=== PATIENT | male | born 1945 | race Caucasian/White ===

== ENCOUNTER 2017-09-15 03:25 | Inpatient (IN) | payer OTHER, MEDICARE ==
[~2017-09-15] VITALS: Ht 170.2 cm; Wt 75.9 kg
[2017-09-15 13:30] VITALS: BP 137/81
[2017-09-15] MEDS ORDERED: ACET/BUTAL/CAFF (FIORICET) TAB PO PRN (14:30)
[2017-09-15 14:35] LABS: MAGNESIUM 1.8 MG/DL (1.8-2.4); PROTHROMBIN TIME PATIENT 13.4 SEC (12.2-14.7)
--- NOTE | 2017-09-15 15:14 | Cardiology History & Physical ---
HPI-Cardiology Cardiology H&P Date of Admission 09-15-[address] Hutchins Attending Physician Eula Payan MD [facility]cds Consulting Physician ÁNGEL Mr. Patiño is a 71 year old male transferred to [facility], ICU 11, from [facility] d/t NSTEMI. He reports he had a non-syncopal fall at home on the morning of . He states he lives at home alone. He reports he was in his kitchen at home he began to feel his legs become weak. He reports feeling dizzy. He states he leaned up against his fridge and tried to lower himself to the ground , but he reports he passed out. He is unsure of how long he was out. He reports he did not go immediately to the ED, but by the end of the day he decided to go to the ED. He subsequently was found to have a right hip fracture. He underwent surgery at [facility] on09-13-17. He states after surgery, he is unsure of the time frame, he did have an episode of chest pressure which was midsternal and radiated across his chest. He reports he felt SOB, nauseated, diaphoretic. He states this lasted for a few minutes and gradually resolved. He states he no further episodes until this morning when he was up walking with PT. He states he again had chest pressure. He states it was not as strong as the previous episode. He reports it lasted for a few minutes and then gradually resolved. He reports he did feel weak at the time. He reports no further episodes. He is currently pain free. Review of Systems-Cardiology Review of Systems Constitutional: No chills, No fever Eyes: No vision change Ears/Nose/Throat: No epistaxis, No recent hearing loss Respiratory: no symptoms reported Cardiovascular: no symptoms reported Gastrointestinal: nausea Genitourinary: No dysuria, No hematuria Musculoskeletal: other (right hip pain (post surgical)) Skin: No rash, No ulcerations Psychiatric/Neurological: syncope, No focal weakness Hematologic: No bleeding abnormalities NNI-Qjuyfm-Kleurj Hx Patient Social History Smoking Status: Never a Smoker Recent Foreign Travel: No Recent Infectious Disease Expo: Yes Past Medical History PMH As described under Assessment. Family Medical History Family Medical History: He reports his father had CAD, PPM and was on warfarin. He reports his mother had CAD. Allergies and Home Medications Allergies Coded Allergies: atenolol (Verified Allergy, Unknown, Trouble breathing, 09/15/17) Home Medications Aspirin 81 Mg Tablet.dr, 81 MG PO HS, (Reported) Butalb/Acetaminophen/Caffeine 1 Each Capsule, 2 CAP PO Q4H PRN for MIGRAINE, ( Reported) Ergocalciferol (Vitamin D2) 50,000 Unit Capsule, 50,000 UNIT PO FRI, (Reported) Furosemide 20 Mg Tablet, 20 MG PO DAILY, (Reported) Insulin Aspart 300 Units/3 Ml Solution, SC UD, (Reported) USES 11 UNITS W/ BREAKFAST & LUNCH & 15 UNITS W/ SUPPER, USES AN ADDITIONAL 2 UNITS FOR EVERY 50 POINTS OVER 150 BS READING Insulin Glargine,Hum.rec.anlog 100 Unit/1 Ml Insuln.pen, 46 UNIT SQ HS, ( Reported) Loratadine 10 Mg Tablet, 10 MG PO HS, (Reported) [place] 3 Polyunsat Fatty Acids 1,000 Mg Cap, 1,000 MG PO HS, (Reported) Omeprazole 20 Mg Capsule.dr, 20 MG PO HS, (Reported) Pravastatin Sodium 80 Mg Tablet, 80 MG PO HS, (Reported) Tamsulosin HCl 0.4 Mg Cap, 0.4 MG PO HS, (Reported) Tramadol HCl 50 Mg Tablet, 100 MG PO BID, (Reported) TAKES 2 (50MG) TABLETS [Gabapentin] , 2 TAB PO BID, (Reported) [Valsartan] , (Reported) Physical Exam-Cardiology Physical Exam Vital Signs/I&O Vital Sign - Last 12Hours 09/15/17 09/15/17 09/16/17 09/16/17 20:00 20:03 00:00 00:00 Temp 98.4 99.8 Pulse 96 92 Resp 18 19 B/P (MAP) 106/64 (78) 137/82 (100) Pulse Ox 98 98 O2 Delivery Room Air Room Air Room Air Room Air 09/16/17 09/16/17 09/16/17 01:00 04:00 04:00 Temp 99.3 Pulse 86 84 B/P (MAP) 157/85 (109) Pulse Ox 94 O2 Delivery Room Air Room Air Intake and Output 09/16/17 00:00 Intake Total 600 ml Output Total 700 ml Balance -100 ml Capillary Refill : Constitutional: AAO x 3 HEENT: PERRL Neck: No carotid bruit, carotid pulses are 2 + bilaterally Respiratory: No accessory muscle use, No respiratory distress, lungs clear to auscultation Cardiovascular: regular rate-rhythm, No JVD, S1 and S2, systolic murmur Gastrointestinal: audible bowel sounds Rectal: deferred Extremities: no lower extremity edema bilateral, wound (Right hip post surgical dressing in place D&I) Neurologic/Psychiatric: grossly intact Skin: No rash, No ulcerations Data Review Labs Laboratory Tests 09/15/17 14:18: Prothrombin Time 13.4, INR Comment 1.0, Activated Partial Thromboplast Time 37H , Magnesium Level 1.8, Troponin I 1.38*H 09/15/17 15:22: Glucometer 279H 09/16/17 04:35: Prothrombin Time 13.7, INR Comment 1.0, Activated Partial Thromboplast Time 35, Magnesium Level 1.9, White Blood Count 9.2, Red Blood Count 3.92L, Hemoglobin 12.0L, Hematocrit 31L, Mean Corpuscular Volume 79L, Mean Corpuscular Hemoglobin 31, Mean Corpuscular Hemoglobin Concent 39H, Red Cell Distribution Width 12.4, Platelet Count 204, Mean Platelet Volume 9.3, Sodium Level 140, Potassium Level 3.9, Chloride Level 108H, Carbon Dioxide Level 19L, Anion Gap 13, Blood Urea Nitrogen 38H, Creatinine 2.05H, Estimat Glomerular Filtration Rate 32, BUN/ Creatinine Ratio 19, Glucose Level 155H, Calcium Level 8.7, Total Bilirubin 0.4 , Aspartate Amino Transf (AST/SGOT) 14, Alanine Aminotransferase (ALT/SGPT) 13, Alkaline Phosphatase 67, Total Protein 6.0L, Albumin 3.2, Triglycerides Level 177H, Cholesterol Level 164, LDL Cholesterol Direct 100, VLDL Cholesterol 35, HDL Cholesterol 20L A/P-Cardiology Assessment/Admission Diagnosis NSTEMI Syncopal fall at home resulting in right hip fracture S/P right hip fracture repair on 09-13-17 at [facility] by Dr. 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
[2017-09-15 15:15] VITALS: BP 144/92
[2017-09-15] MEDS ORDERED: oxyCODONE/APAP 10/325MG (PERCOCET 10) TABLET PO PRN (15:15)
[2017-09-15] MEDS ORDERED: TAMS0.4C98 PO (15:41)
[2017-09-15] MEDS ORDERED: PRAV80TA2 PO (15:41)
[2017-09-15] MEDS ORDERED: ASPI-999 PO (15:41)
[2017-09-15] MEDS ORDERED: INSU100I10 SQ (15:41)
[2017-09-15] MEDS ORDERED: FURO20TA4 PO (15:41)
[2017-09-15] MEDS ORDERED: LORA10TA7 PO (15:41)
[2017-09-15] MEDS ORDERED: ERGO50006 PO (15:41)
[2017-09-15] MEDS ORDERED: OMEP20CA12 PO (15:41)
[2017-09-15] MEDS ORDERED: TRAM50TA2 PO (15:41)
[2017-09-15] MEDS ORDERED: BUTA1CAP37 PO (15:41)
[2017-09-15] MEDS ORDERED: OMG1KC PO (15:41)
[2017-09-15] MEDS ORDERED: GABAPENTIN PO (15:49)
[2017-09-15] MEDS ORDERED: ASPI-983 PO (15:49)
[2017-09-15] MEDS ORDERED: INSU100I14 SC (15:49)
[2017-09-15] MEDS: NS IV 1000 ML 1,000 ML IV SCH (16:01)
--- NOTE | 2017-09-15 16:01 | Cardiology History & Physical ---
HPI-Cardiology Cardiology H&P Date of Admission 09/15/17 Primary Care Physician Attending Physician Eula Payan MD, MA FACP [facility]S Consulting Physician ÁNGEL Mr. Patiño is a 71 year old male transferred to [facility], ICU 11, from [facility] d/t NSTEMI. He reports he had a non-syncopal fall at home on the morning of . He states he lives at home alone. He reports he was in his kitchen at home he began to feel his legs become weak. He reports feeling dizzy. He states he leaned up against his fridge and tried to lower himself to the ground , but he reports he passed out. He is unsure of how long he was out. He reports he did not go immediately to the ED, but by the end of the day he decided to go to the ED. He subsequently was found to have a right hip fracture. He underwent surgery at [facility] on09-13-17. He states after surgery, he is unsure of the time frame, he did have an episode of chest pressure which was midsternal and radiated across his chest. He reports he felt SOB, nauseated, diaphoretic. He states this lasted for a few minutes and gradually resolved. He states he no further episodes until this morning when he was up walking with PT. He states he again had chest pressure. He states it was not as strong as the previous episode. He reports it lasted for a few minutes and then gradually resolved. He reports he did feel weak at the time. He reports no further episodes. He is currently pain free. Review of Systems-Cardiology Review of Systems Constitutional: No chills, No fever Eyes: No vision change Ears/Nose/Throat: No epistaxis, No recent hearing loss Respiratory: no symptoms reported Cardiovascular: no symptoms reported Gastrointestinal: nausea Genitourinary: No dysuria, No hematuria Musculoskeletal: other (right hip pain (post surgical)) Skin: No rash, No ulcerations Psychiatric/Neurological: syncope, No focal weakness Hematologic: No bleeding abnormalities PXD-Kjaxrs-Bultrw Hx Patient Social History Alcohol Use: Rarely Uses Recreational Drug Use: No Smoking Status: Never a Smoker Recent Foreign Travel: No Recent Infectious Disease Expo: Yes Hospitalization with Isolation: Denies Physical Abuse Screen: No Sexual Abuse: No Past Medical History PMH As described under Assessment. Family Medical History Family Medical History: He reports his father had CAD, PPM and was on warfarin. He reports his mother had CAD. Allergies and Home Medications Allergies Coded Allergies: atenolol (Verified Allergy, Unknown, Trouble breathing, 09/15/17) Home Medications Aspirin 81 Mg Tab.chew, 81 MG PO DAILY, (Reported) Butalb/Acetaminophen/Caffeine 1 Each Capsule, 2 CAP PO Q4H PRN for HEADACHE, ( Reported) Ergocalciferol (Vitamin D2) 50,000 Unit Capsule, 50,000 UNIT PO WEEK, (Reported) Furosemide 20 Mg Tablet, 20 MG PO DAILY, (Reported) Insulin Glargine,Hum.rec.anlog 100 Unit/1 Ml Insuln.pen, 41 UNIT SQ HS, ( Reported) Loratadine 10 Mg Tablet, 10 MG PO DAILY, (Reported) [place] 3 Polyunsat Fatty Acids 1,000 Mg Cap, 1,000 MG PO DAILY, (Reported) Omeprazole 20 Mg Capsule.dr, 20 MG PO DAILY, (Reported) Pravastatin Sodium 80 Mg Tablet, 80 MG PO HS, (Reported) Tamsulosin HCl 0.4 Mg Cap, 0.4 MG PO 1730, (Reported) Tramadol HCl 50 Mg Tablet, 50 MG PO Q8H PRN for PAIN-MILD, (Reported) Physical Exam-Cardiology Physical Exam Vital Signs/I&O Vital Sign - Last 12Hours 09/15/17 13:30 Temp 99.0 Pulse 95 Resp 8 B/P (MAP) 137/81 (99) Pulse Ox 95 O2 Delivery Room Air Capillary Refill : Constitutional: AAO x 3 HEENT: PERRL Neck: No carotid bruit, carotid pulses are 2 + bilaterally Respiratory: No accessory muscle use, No respiratory distress, lungs clear to auscultation Cardiovascular: regular rate-rhythm, No JVD, S1 and S2, systolic murmur Gastrointestinal: audible bowel sounds Rectal: deferred Extremities: no lower extremity edema bilateral, wound (Right hip post surgical dressing in place D&I) Neurologic/Psychiatric: grossly intact Skin: No rash, No ulcerations Data Review Labs Laboratory Tests 09/15/17 14:18: Prothrombin Time 13.4, INR Comment 1.0, Activated Partial Thromboplast Time 37H , Magnesium Level 1.8, Troponin I 1.38*H 09/15/17 15:22: Glucometer 279H A/P-Cardiology Assessment/Admission Diagnosis NSTEMI Syncopal fall at home resulting in right hip fracture S/P right hip fracture repair on 09-13-17 at [facility] by Dr. 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 Inez Garcia of [facility] H/O ureter stent in the past Reports h/o CVA x 3 in 2008 [facility] which [facility] [place] [facility] details [facility] Reports possible h/o carotid dz Reports possible h/o valvular dz HLP - statin tx DM 2 GERD - PPI tx Discussion and Recomendations * Multiple issues reviewed and addressed * I spoke with Dr Hutchins at [facility] who had requested transfer * Treatment of WA is with aspirin, but unable to give beta-evan (because of pt's report of severe intolerance and refusal to take it) * Continue DM treatment * I had a long and detailed discussion with him * Card cath is appropriate given NSTEMI and continuing unstable angina. However , risk of contrast nephropathy is much higher than usual because he has baseline CKD due to diabetic nephropathy * We reviewed the rationale, procedure, risks, benefits, potential complications and alternatives of cath and possible PCI. He understands and wishes to proceed. We are making arrangements * Echo to eval wall ricardo, EF and valve function * iv fluids to reduce risk of contrast nephropathy * No KJ-inhib or ARB for now to reduce risk of contrast nephropathy Clinical Quality Measures DVT/VTE Risk/Contraindication: Risk Factor Score Per Nursin RFS Level Per Nursing on Admit: 4+=Very High [facility] PAYAN [facility] Sep 15, 2017 16:01
[2017-09-15] MEDS ORDERED: VALSARTAN (16:06)
[2017-09-15] MEDS ORDERED: inSUlin ASPART (NovoLOG) 1 UNIT/0.01 ML (CHARGE PER UNIT) SC SCH (17:00)
[2017-09-15] MEDS: inSUlin ASPART (NovoLOG) 1 UNIT/0.01 ML (CHARGE PER UNIT) SC SCH (17:17)
[2017-09-15] MEDS ORDERED: ALFUZOSIN HCL 10 MG TAB (UROXATRAL) PO SCH (18:00)
[2017-09-15 20:03] VITALS: BP 106/64
[2017-09-15] MEDS ORDERED: ATORVASTATIN 20 MG (LIPITOR) TABLET PO SCH (21:00)
[2017-09-16] VITALS (19 sets, daily range): BP systolic 106–182; BP diastolic 69–92
[2017-09-16 05:04] LABS: MEAN PLATELET VOLUME 9.3 FL (7.4-10.4); RED BLOOD COUNT 3.92 10^6/uL (4.35-5.85); RED CELL DISTRIBUTION WIDTH 12.4 % (10.0-14.5); WHITE BLOOD COUNT 9.2 10^3/uL (4.3-11.0)
[2017-09-16 05:11] LABS: PROTHROMBIN TIME PATIENT 13.7 SEC (12.2-14.7)
[2017-09-16 05:31] LABS: ALBUMIN 3.2 GM/DL (3.2-4.5); BILIRUBIN,TOTAL 0.4 MG/DL (0.1-1.0); CALCIUM 8.7 MG/DL (8.5-10.1); CREATININE SERUM 2.05 MG/DL (0.60-1.30); MAGNESIUM 1.9 MG/DL (1.8-2.4); POTASSIUM 3.9 MMOL/L (3.6-5.0)
[2017-09-16] MEDS: NS IV 1000 ML 1,000 ML IV SCH (06:25)
[2017-09-16] MEDS ORDERED: NS IV 1000 ML 0 ML ONE (06:49)
[2017-09-16] MEDS ORDERED: LIDOCAINE 1% INJ 50 ML (XYLOCAINE) VIAL ONE (06:49)
[2017-09-16] MEDS ORDERED: HEParin (CATH LAB) 2,000 ML IV ONE (06:49)
[2017-09-16] MEDS: inSUlin ASPART (NovoLOG) 1 UNIT/0.01 ML (CHARGE PER UNIT) SC SCH ×4 (07:39→13:10)
[2017-09-16] MEDS ORDERED: MIDAZOLAM 5 MG/5 ML (VERSED) VIAL ONE (07:55)
[2017-09-16] MEDS ORDERED: diphenhydrAMINE 50 MG/ML INJ (BENADRYL) ONE (07:56)
[2017-09-16] MEDS ORDERED: fentaNYL INJECTION 100 MCG/2 ML AMP ONE (07:56)
[2017-09-16] MEDS ORDERED: BUTA-249 PO (08:02)
[2017-09-16] MEDS ORDERED: DEXT4TAB PO (08:02)
[2017-09-16] MEDS ORDERED: SILD100T PO (08:02)
[2017-09-16] MEDS ORDERED: GABA-488 PO (08:02)
[2017-09-16] MEDS ORDERED: VALS160T28 PO (08:02)
[2017-09-16] MEDS ORDERED: ENOXAPARIN 40 MG/0.4 ML (LOVENOX) SYR SC SCH (09:00)
[2017-09-16] MEDS ORDERED: OMEGA 3 (FISH OIL) 1000 MG CAP PO SCH (09:00)
[2017-09-16] MEDS ORDERED: amLODIPine 5 MG (NORVASC) TAB PO SCH (09:00)
[2017-09-16] MEDS ORDERED: ASPIRIN E.C. 81 MG (ECOTRIN) TAB PO SCH (09:00)
[2017-09-16] MEDS ORDERED: NS IV 1000 ML 1,000 ML IV SCH (09:18)
--- NOTE | 2017-09-16 09:18 | Progress Note-Cardiology ---
Cardiology SOAP Progress Note Subjective: No further cp. Has not ambulated much. Denies shortness of breath at rest. Denies palp Objective: I&O/Vital Signs Vital Sign - Last 12Hours 09/16/17 09/16/17 09/16/17 09/16/17 00:00 00:00 01:00 04:00 Temp 99.8 Pulse 92 86 Resp 19 B/P (MAP) 137/82 (100) Pulse Ox 98 O2 Delivery Room Air Room Air Room Air 09/16/17 09/16/17 09/16/17 04:00 08:00 08:00 Temp 99.3 98.9 Pulse 84 88 Resp 18 B/P (MAP) 157/85 (109) 160/90 (113) Pulse Ox 94 95 O2 Delivery Room Air Room Air Room Air Intake and Output 09/16/17 00:00 Intake Total 600 ml Output Total 700 ml Balance -100 ml Weight (Pounds): 167 Weight (Ounces): 6.0 Weight (Calculated Kilograms): [id number] Constitutional: AAO x 3 Respiratory: No accessory muscle use, No respiratory distress, lungs clear to auscultation Cardiovascular: regular rate-rhythm, No JVD, S1 and S2, systolic murmur Gastrointestional: audible bowel sounds Extremities: no lower extremity edema bilateral, wound (Right hip post surgical dressing in place D&I) Neurologic/Psychiatric: grossly intact Skin: No rash, No ulcerations Results/Procedures: Labs Laboratory Tests 09/15/17 14:18: Prothrombin Time 13.4, INR Comment 1.0, Activated Partial Thromboplast Time 37H , Magnesium Level 1.8, Troponin I 1.38*H 09/15/17 15:22: Glucometer 279H 09/16/17 04:35: Prothrombin Time 13.7, INR Comment 1.0, Activated Partial Thromboplast Time 35, Magnesium Level 1.9, White Blood Count 9.2, Red Blood Count 3.92L, Hemoglobin 12.0L, Hematocrit 31L, Mean Corpuscular Volume 79L, Mean Corpuscular Hemoglobin 31, Mean Corpuscular Hemoglobin Concent 39H, Red Cell Distribution Width 12.4, Platelet Count 204, Mean Platelet Volume 9.3, Sodium Level 140, Potassium Level 3.9, Chloride Level 108H, Carbon Dioxide Level 19L, Anion Gap 13, Blood Urea Nitrogen 38H, Creatinine 2.05H, Estimat Glomerular Filtration Rate 32, BUN/ Creatinine Ratio 19, Glucose Level 155H, Calcium Level 8.7, Total Bilirubin 0.4 , Aspartate Amino Transf (AST/SGOT) 14, Alanine Aminotransferase (ALT/SGPT) 13, Alkaline Phosphatase 67, Total Protein 6.0L, Albumin 3.2, Triglycerides Level 177H, Cholesterol Level 164, LDL Cholesterol Direct 100, VLDL Cholesterol 35, HDL Cholesterol 20L Laboratory Tests 09/16/17 04:35 A/P: Assessment: Ac NSTEMI due to multivessel CAD (see below) Card cath of 09/16/17: Severe three-vessel CAD, including the proximal LAD; LVEF 60-65%; LVEDP 12 mmHg; mild MR Syncopal fall at home resulting in right hip fracture in early Sep 2017 S/P right hip fracture repair on 09-13-[address] [facility] by Dr. 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 Inez Garcia of [facility] H/O ureter stent in the past Reports h/o CVA x 3 in 2008 for which [facility] [place] - details unknown Reports possible h/o carotid dz Reports possible h/o valvular dz HLP - statin tx DM 2 GERD - PPI tx Plan: * Multiple issues reviewed and addressed * Treatment of OK is with aspirin, but unable to give beta-evna (because of pt's report of severe intolerance and refusal to take it). Add Plavix * Continue DM treatment * I had a long and detailed discussion with him after his card cath that is summarized above and detailed in the cath report of 09/16/17 * Based on cath results, CABG appears to be the best treatment. I discussed this with and have called Dr Pina of the [facility] surgical service at [facility]. He has kindly accepted the patient in transfer * Continue perioperatve iv fluids to reduce risk of contrast nephropathy * No KJ-inhib or ARB for now to reduce risk of contrast nephropathy * Low dose enoxaparin for DVT prophylaxis YUSUF COPPOLA MD [facility] Sep 16, 2017 09:18
--- NOTE | 2017-09-16 09:23 | Cardiology Discharge Summary ---
Diagnosis/Chief Complaint Date of Admission Sep 15, 2017 at 13:22 Date of Discharge 09/16/17 Final/Discharge Diagnosis Ac NSTEMI due to multivessel CAD (see below) Card cath of 09/16/17: Severe three-vessel CAD, including the proximal LAD; LVEF 60-65%; LVEDP 12 mmHg; mild MR Syncopal fall at home resulting in right hip fracture in early Sep 2017 S/P right hip fracture repair on 09-13-17 at [facility] by Dr. 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 Inez Garcia of [facility] H/O ureter stent in the past Reports h/o CVA x 3 in 2008 for which [facility] [place] - details unknown Reports possible h/o carotid dz Reports possible h/o valvular dz HLP - statin tx DM 2 GERD - PPI tx Chief Complaint/HPI Chief Complaint/HPI Mr. Patiño is a 71 year old male transferred to [facility], ICU 11, from [facility] d/t NSTEMI. He reports he had a non-syncopal fall at home on the morning of . He states he lives at home alone. He reports he was in his kitchen at home he began to feel his legs become weak. He reports feeling dizzy. He states he leaned up against his fridge and tried to lower himself to the ground , but he reports he passed out. He is unsure of how long he was out. He reports he did not go immediately to the ED, but by the end of the day he decided to go to the ED. He subsequently was found to have a right hip fracture. He underwent surgery at [facility] on09-13-17. He states after surgery, he is unsure of the time frame, he did have an episode of chest pressure which was midsternal and radiated across his chest. He reports he felt SOB, nauseated, diaphoretic. He states this lasted for a few minutes and gradually resolved. He states he no further episodes until this morning when he was up walking with PT. He states he again had chest pressure. He states it was not as strong as the previous episode. He reports it lasted for a few minutes and then gradually resolved. He reports he did feel weak at the time. He reports no further episodes. He is currently pain free. Please refer to the progress note of today's (09/16/17) for hosp course Discharge Summary Procedures Echo on 09/15/17 Card cath on 09/16/17 Hospital Course Pending Labs Laboratory Tests 09/16/17 04:35: White Blood Count 9.2, Red Blood Count 3.92, Hemoglobin 12.0, Hematocrit 31, Mean Corpuscular Volume 79, Mean Corpuscular Hemoglobin 31, Mean Corpuscular Hemoglobin Concent 39, Red Cell Distribution Width 12.4, Platelet Count 204, Mean Platelet Volume 9.3, Prothrombin Time 13.7, INR Comment 1.0, Activated Partial Thromboplast Time 35, Sodium Level 140, Potassium Level 3.9, Chloride Level 108, Carbon Dioxide Level 19, Anion Gap 13, Blood Urea Nitrogen 38, Creatinine 2.05, Estimat Glomerular Filtration Rate 32, BUN/Creatinine Ratio 19 , Glucose Level 155, Calcium Level 8.7, Magnesium Level 1.9, Total Bilirubin 0.4 , Aspartate Amino Transf (AST/SGOT) 14, Alanine Aminotransferase (ALT/SGPT) 13, Alkaline Phosphatase 67, Total Protein 6.0, Albumin 3.2, Triglycerides Level 177 , Cholesterol Level 164, LDL Cholesterol Direct 100, VLDL Cholesterol 35, HDL Cholesterol 20 Discussion & Recommendations Home Medications Reviewed patient Home Medication Reconciliation Form Discharge Home Medications: Reviewed and agree with Discharge Medication list on patient's Discharge Instruction sheet Clinical Quality Measures DVT/VTE Risk/Contraindication: Risk Factor Score Per Nursin RFS Level Per Nursing on Admit: 4+=Very High YUSUF COPPOLA MD FACP [facility]S Sep 16, 2017 09:23
[2017-09-16] MEDS ORDERED: PATIENT MAY USE OWN MEDS, ALL PO SCH (09:30)
[2017-09-16] MEDS ORDERED: CLOPIDOGREL 75 MG (PLAVIX) TABLET PO NR (09:30)
[2017-09-16] MEDS ORDERED: ISOSORBIDE MONONITRATE 60 MG (IMDUR) TAB PO NR (10:30)
--- NOTE | 2017-09-16 10:30 | CARDIAC CATHETERIZATION ---
DATE OF SERVICE: 09/16/2017 CARDIAC CATHETERIZATION REPORT. HISTORY OF PRESENT ILLNESS: The patient is a 71-year-old man who recently underwent right hip surgery and had a non-ST elevation myocardial infarction in the postoperative phase. He was at [place] for this and was transferred to this hospital on 09/15/2017. Today, he underwent cardiac catheterization after having obtained an informed consent. We carried out vigorous perioperative hydration to reduce risk of contrast nephropathy. Hydration was started at least 12 hours prior to the procedure today, was continued during the procedure and is to be continued afterwards. PROCEDURE: He was brought to the cardiac catheterization laboratory in a fasting state. Right groin was prepared and draped in the usual sterile fashion. A 1% lidocaine was used for local anesthesia. Modified Seldinger technique was used to advance a 5-Fijian sheath in the left femoral artery. A 5-Fijian JL4 catheter for left coronary angiography, 5-Fijian JR4 catheter was used for right coronary angiography. A 5-Fijian pigtail catheter was used for left heart catheterization and left ventricular angiography. At the end of the procedure, angiography of the left femoral artery was carried out through the sheath and Mynx was used to achieve hemostasis. Overall, he tolerated the procedure well. HEMODYNAMICS: Left ventricular end-diastolic pressure following coronary angiography was 12 mmHg. There was no significant pressure gradient on pullback across the aortic valve. Ascending aortic pressure was 130/66 with a mean of 94 mmHg. LEFT VENTRICULAR ANGIOGRAPHY: Left ventricular angiography was carried out in the right anterior oblique projection. No distinct regional wall motion abnormalities seen in this view. There is mild mitral regurgitation. Left ventricular ejection fraction approximately 60% to 65%. CORONARY ANGIOGRAPHY: There is approximately 50% distal left main coronary artery stenosis. There is up to 90% stenosis in the proximal and mid left anterior descending artery. The left circumflex artery has approximately 50% ostial, approximately 70% midvessel, and approximately 90% distal stenoses. The right coronary artery has approximately 60% proximal, 90% midvessel, and 99% to 100% distal vessel stenoses. CONCLUSIONS: 1. Multivessel coronary artery disease, severe, including 90% proximal and mid vessel stenosis of the left anterior descending, 90% mid to distal stenosis of the left circumflex, and 90% to 99% mid to distal vessel stenosis of the right coronary arteries. 2. Well-preserved global left ventricular systolic function with ejection fraction of approximately 60% to 65%. 3. Mild mitral regurgitation. DISCUSSION AND RECOMMENDATIONS: Based on these findings and the patient's diabetic status, coronary artery bypass surgery appears to be the best treatment option. We discussed this with him and he is considering his options. We will contact cardiovascular surgical service to arrange a transfer if he so agrees. Job ID: [id number] DocumentID: [id number] Dictated Date: 09/16/2017 08:56:41 Shaft Repairer Date: 09/16/2017 10:29:38 Dictated By: YUSUF COPPOLA MD, MA, FACP, FACC, MTDD
[2017-09-17] MEDS ORDERED: CLOPIDOGREL 75 MG (PLAVIX) TABLET PO SCH (09:00)
[2017-09-17] MEDS ORDERED: ISOSORBIDE MONONITRATE 60 MG (IMDUR) TAB PO SCH (09:00)
== END 2017-09-16 14:41 | disposition swing bed (61) | DRG 282 ==
LOC: EDSTATUS 03:25 → UNDOADMOB 13:22 → ICU 13:22 → UNDODISOB 09-16 14:41
PROVIDERS: ADMIT Internal Medicine Cardiovascular Disease; ATTEND Internal Medicine Cardiovascular Disease
PROC: 4A023N7 Measurement of Cardiac Sampling and Pressure, Left Heart, Percutaneous Approach (ICD-10-PCS; principal; 2017-09-16)
PROC: B2151ZZ Fluoroscopy of Left Heart using Low Osmolar Contrast (ICD-10-PCS; 2017-09-16)
PROC: B2111ZZ Fluoroscopy of Multiple Coronary Arteries using Low Osmolar Contrast (ICD-10-PCS; 2017-09-16)
DX: I21.4 Non-ST elevation (NSTEMI) myocardial infarction (principal); I25.10 Atherosclerotic heart disease of native coronary artery without angina pectoris; I34.0 Nonrheumatic mitral (valve) insufficiency; I12.9 Hypertensive chronic kidney disease with stage 1 through stage 4 chronic kidney disease, or unspecified chronic kidney disease; N18.3 Chronic kidney disease, stage 3 (moderate); E11.22 Type 2 diabetes mellitus with diabetic chronic kidney disease; E11.21 Type 2 diabetes mellitus with diabetic nephropathy; E78.5 Hyperlipidemia, unspecified; S72.001D Fracture of unspecified part of neck of right femur, subsequent encounter for closed fracture with routine healing; Z86.73 Personal history of transient ischemic attack (TIA), and cerebral infarction without residual deficits
CPT/HCPCS: 36415; 80053; 80061; 82962; 83735; 84484; 85027; 85610; 85730; 93005; 93306; 93458

== ENCOUNTER → 2019-12-24 | Outpatient (CLI) | payer MEDICARE, OTHER ==
[~2019-12-24] MED LIST: ASPI-983 PO; ASPI-999 PO; BUTA-249 PO; BUTA1CAP37 PO; DEXT-319 PO; ERGO50006 PO; FURO20TA4 PO; GABA-488 PO; GABAPENTIN PO; INSU100I10 SQ; INSU100I14 SC; LORA10TA7 PO; OMEP20CA18 PO; OMG1KC PO; PRAV80TA2 PO; SILD100T PO; TMSL.4C PO; TRM50T PO; VALS160T29 PO; VALSARTAN
[2019-12-24 18:08] LABS: BASOPHILS % (AUTO) 1 % (0-10); EOSINOPHILS % (AUTO) 4 % (0-10); HEMATOCRIT 41 % (40-54); HEMOGLOBIN 13.9 G/DL (13.3-17.7); LYMPHOCYTES % (AUTO) 13 % (12-44); MEAN CORPUSCULAR HEMOGLOBIN 31 PG (25-34); MEAN CORPUSCULAR HGB CONC 34 G/DL (32-36); MEAN CORPUSCULAR VOLUME 89 FL (80-99); MEAN PLATELET VOLUME 10.6 FL (7.4-10.4); MONOCYTES % (AUTO) 7 % (0-12); NEUTROPHILS % (AUTO) 75 % (42-75); PLATELET COUNT 239 10^3/uL (130-400); RED CELL DISTRIBUTION WIDTH 12.7 % (10.0-14.5); WHITE BLOOD COUNT 9.4 10^3/uL (4.3-11.0)
[2019-12-24 18:09] LABS: BASOPHILS # (AUTO) 0.1 10^3/uL (0.0-0.1); EOSINOPHILS # (AUTO) 0.3 10^3/uL (0.0-0.3); LYMPHOCYTES # (AUTO) 1.2 X 10^3 (1.0-4.0); MONOCYTES # (AUTO) 0.6 X 10^3 (0.0-1.0)
[2019-12-24 18:10] LABS: BACTERIA,URINE TRACE /HPF; BILIRUBIN,URINE NEGATIVE (NEGATIVE); CLARITY,URINE CLEAR; COLOR,URINE YELLOW; GLUCOSE, URINE (UA) TRACE (NEGATIVE); KETONES,URINE NEGATIVE (NEGATIVE); LEUKOCYTE ESTERASE ,URINE NEGATIVE (NEGATIVE); NITRITE,URINE NEGATIVE (NEGATIVE); PROTEIN,URINE 3+ (NEGATIVE); SQUAMOUS EPITHELIAL CELL,UR 0-2 /HPF; WBC,URINE 0-2 /HPF
[2019-12-24 18:11] LABS: HYALINE CASTS, URINE 0-2 /LPF
[2019-12-25 15:19] LABS: PHOSPHORUS 4.4 MG/DL (2.3-4.7)
[2019-12-25 15:22] LABS: URIC ACID 9.9 MG/DL (2.6-7.2)
[2019-12-25 15:42] LABS: CALCIUM 9.3 MG/DL (8.5-10.1); CREATININE SERUM 4.15 MG/DL (0.60-1.30); POTASSIUM 5.1 MMOL/L (3.6-5.0)
== END ==
LOC: LAB FS 17:17
PROVIDERS: ATTEND Family Medicine
DX: E11.22 Type 2 diabetes mellitus with diabetic chronic kidney disease (principal); I12.9 Hypertensive chronic kidney disease with stage 1 through stage 4 chronic kidney disease, or unspecified chronic kidney disease; N18.3 Chronic kidney disease, stage 3 (moderate)
CPT/HCPCS: 36415; 80069; 81000; 82570; 84156; 84550; 85025

== ENCOUNTER → 2019-12-28 | Outpatient (CLI) | payer MEDICARE, OTHER | LOC: LAB FS 15:48 | PROVIDERS: ATTEND Internal Medicine Nephrology | DX: I12.9 Hypertensive chronic kidney disease with stage 1 through stage 4 chronic kidney disease, or unspecified chronic kidney disease (principal); E11.22 Type 2 diabetes mellitus with diabetic chronic kidney disease; N18.9 Chronic kidney disease, unspecified | CPT/HCPCS: 36415; 83970 ==

== ENCOUNTER → 2020-01-07 | Outpatient (CLI) | payer MEDICARE, OTHER ==
[2020-01-07 17:22] LABS: BILIRUBIN,URINE NEGATIVE (NEGATIVE); CLARITY,URINE CLEAR; COLOR,URINE YELLOW; GLUCOSE, URINE (UA) NEGATIVE (NEGATIVE); KETONES,URINE NEGATIVE (NEGATIVE); LEUKOCYTE ESTERASE ,URINE NEGATIVE (NEGATIVE); NITRITE,URINE NEGATIVE (NEGATIVE); PROTEIN,URINE 3+ (NEGATIVE); SQUAMOUS EPITHELIAL CELL,UR RARE /HPF; WBC,URINE 0-2 /HPF
[2020-01-08 15:13] LABS: PHOSPHORUS 3.7 MG/DL (2.3-4.7)
[2020-01-08 15:23] LABS: CALCIUM 9.1 MG/DL (8.5-10.1); CREATININE SERUM 3.11 MG/DL (0.60-1.30); POTASSIUM 4.6 MMOL/L (3.6-5.0)
== END ==
LOC: LAB FS 15:34
PROVIDERS: ATTEND Internal Medicine Nephrology
DX: E11.22 Type 2 diabetes mellitus with diabetic chronic kidney disease (principal); N18.3 Chronic kidney disease, stage 3 (moderate)
CPT/HCPCS: 36415; 80069; 81000; 82570; 84156

== ENCOUNTER → 2020-04-02 | Outpatient (CLI) | payer MEDICARE, OTHER ==
[2020-04-02 16:17] LABS: HEMOGLOBIN 11.1 G/DL (13.3-17.7); MEAN PLATELET VOLUME 10.8 FL (7.4-10.4); RED CELL DISTRIBUTION WIDTH 13.6 % (10.0-14.5)
[2020-04-02 16:28] LABS: BACTERIA,URINE NEGATIVE /HPF; BILIRUBIN,URINE NEGATIVE (NEGATIVE); CLARITY,URINE CLEAR; COLOR,URINE YELLOW; GLUCOSE, URINE (UA) 2+ (NEGATIVE); KETONES,URINE NEGATIVE (NEGATIVE); LEUKOCYTE ESTERASE ,URINE NEGATIVE (NEGATIVE); NITRITE,URINE NEGATIVE (NEGATIVE); PH,URINE 5.5 (5-9); PROTEIN,URINE 2+ (NEGATIVE); SQUAMOUS EPITHELIAL CELL,UR RARE /HPF; WBC,URINE 0-2 /HPF
[2020-04-02 17:38] LABS: POTASSIUM 4.5 MMOL/L (3.6-5.0)
[2020-04-02 17:39] LABS: CALCIUM 8.9 MG/DL (8.5-10.1); CREATININE SERUM 3.24 MG/DL (0.60-1.30)
[2020-04-03 15:20] LABS: PHOSPHORUS 5.2 MG/DL (2.3-4.7)
[2020-04-03 15:22] LABS: URIC ACID 9.6 MG/DL (2.6-7.2)
== END ==
LOC: LAB FS 15:51
PROVIDERS: ATTEND Internal Medicine Nephrology
DX: E55.9 Vitamin D deficiency, unspecified (principal); E11.22 Type 2 diabetes mellitus with diabetic chronic kidney disease; I12.9 Hypertensive chronic kidney disease with stage 1 through stage 4 chronic kidney disease, or unspecified chronic kidney disease; N18.3 Chronic kidney disease, stage 3 (moderate); G47.33 Obstructive sleep apnea (adult) (pediatric); I63.9 Cerebral infarction, unspecified; N20.0 Calculus of kidney; Z87.39 Personal history of other diseases of the musculoskeletal system and connective tissue
CPT/HCPCS: 36415; 80069; 81000; 82306; 82570; 83970; 84156; 84550; 85027